=== PATIENT | female | born 1950 | race Caucasian/White ===

== ENCOUNTER 2016-12-19 21:20 | Inpatient (IN) | payer OTHER ==
--- NOTE | ~2016-12-19 | OR ---
Unit #: [id number] #: [id number] Patient: ANOTINETTE TUCKER [id number] [address] [place], [place] [address] [id number] I MR#: [id number] NAME: ANTOINETTE TUCKER ROOM: [facility] Date of Procedure: 12/20/2016 Admission Date: 12/19/2016 Surgeon: Justyn Norris M.D. : 1950 Chief Librarian Music Department(s): Nayeli Bundy APRN Attending Physician: Altagracia Roblero M.D. Primary Care Physician: Faith Zuniga M.D. PROCEDURE OPERATIVE NOTE PREOPERATIVE DIAGNOSIS Right valgus impacted femoral neck fracture. POSTOPERATIVE DIAGNOSIS Right valgus impacted femoral neck fracture. PROCEDURE PERFORMED Percutaneous cannulated screw fixation right femoral neck fracture. SURGEON Justyn Norris M.D. JEWEL STAKER Nayeli Bundy APRN. ANESTHESIA General. ESTIMATED BLOOD LOSS 25 mL. COMPLICATIONS None apparent. IMPLANTS Alaina cannulated 6.5 x 75 mm cannulated screw x3. INDICATIONS Ms. Tucker is a 66-year-old female who sustained an injury to her right hip during a trip and fall at work. She sustained a valgus impacted femoral neck fracture which is amenable to fixation with cannulated screws. The risks, benefits and alternatives were discussed with the patient who elected to proceed. DESCRIPTION OF PROCEDURE The patient was identified in the preoperative holding area. The operative site was marked. The patient was brought into the operating room by Anesthesia personnel. General anesthetic was induced while in her hospital bed. She was then transferred to the [place] table. On the operative table she was placed with the legs in a scissored position without any traction applied to the operative extremity. The leg was prepped in a sterile fashion and draped with a shower curtain drape. Unit #: [id number] #: [id number] Patient: ANTOINETTE TUCKER C-arm imaging was brought in over the operative field. Formal timeout was performed to confirm correct patient and correct operative site. An incision was marked out using fluoroscopic imaging guidance. The incision as then deepened down to the IT band. A guidepin for cannulated screw was then drilled up the femoral neck, into the desired location in the femoral head. Two more proximal guidepins were then placed, one anteriorly and superiorly and one posterior and superior. These were measured and all measured essentially as 75 mm length. The outer cortex was drilled and the screws inserted. Final imaging was performed in two orthogonal views. These demonstrated a satisfactory placement of the hardware. The wound was then irrigated and closed with 2-0 Vicryl and kenyon. Sterile dressings were applied. DISPOSITION Stable to the recovery room. Dictated by... Justyn Norris M.D. PATRICE/fritz TD: 12/20/2016 16:04 JOB #: [id number] PROCEDURE OPERATIVE NOTE Page 1 of 1 X Justyn Norris MD X PROCEDURE OPERATIVE NOTE
--- NOTE | ~2016-12-19 | CR72 ---
[facility] A Service of [facility] RADIOLOGY TEXT RESULTS PATIENT: ANTOINETTE TUCKER LOCATION: [facility] [id number] : [birth year] UNIT #: [id number] AGE: [address]: Altagracia Roblero MD SEX: F ORDER DR: [id number] [facility] [address] [place], [place] [address] [id number] I MR#: [id number] Acc #: [id number] NAME: ANTOINETTE TUCKER : 1950 SEX: F STUDY DATE/TIME: 12/19/2016 21:43 UNIT: [facility] ROOM: [facility] STUDY DESCRIPTION: CR Chest Single View Portable Attending Physician: Carlie Yeung M.D. Ordering Physician: Ysabel Elias M.D. Primary Care Physician: Faith Zuniga M.D. MEDICAL IMAGING REPORT This report is preliminary unless electronic signature is present EXAM Portable chest, 12/19/2016 HISTORY Hip fracture status post fall today, preop clearance. Benign essential hypertension. FINDINGS The heart is normal in size. Lungs are clear. There are no pleural effusions. Scoliosis of the thoracic spine is noted. IMPRESSION No active pulmonary disease. Dictated by... Justyn Quintanilla M.D. THIS IS AN ELECTRONICALLY VERIFIED REPORT Justyn Quintanilla M.D. at 12/20/2016 2:28 PM JUVE/luz maria TD: 12/19/2016 22:53 JOB #: [id number] MEDICAL IMAGING REPORT Page 1 of 1 COPY
--- NOTE | ~2016-12-19 | DS ---
Unit #: [id number] #: [id number] Patient: ANTOINETTE TUCKER [id number] [address] [address] [id number] I MR#: [id number] NAME: ANTOINETTE TUCKER. ROOM: 464 Age: 66 Sex: F Admission Date: 12/19/2016 : 1950 Discharge Date: 12/22/2016 Attending Physician: Altagracia Roblero M.D. Primary Care Physician: Faith Zuniga M.D. DISCHARGE SUMMARY DISCHARGE DIAGNOSES 1. Right valgus impacted femoral neck fracture, status post screw fixation of the right femoral neck fracture. 2. Status post fall. 3. Coronary artery disease, status post stent and PCI, myocardial infarction in 2002. 4. Hypertension. 5. Hypothyroidism. 6. Gastroesophageal reflux disease. 7. Osteoporosis. 8. Neurofibromatosis. CONSULTANTS Dr. Justyn Norris. PROCEDURES PERFORMED The patient had percutaneous cannulated screw fixation right femoral neck fracture. DIAGNOSTIC DATA LABORATORY: Urine cultures negative. Sodium 138, potassium 4.3, creatinine 0.8, white blood cell count 8.8, hemoglobin 12.3, platelets 169. ALLERGIES No known drug allergies. DISCHARGE MEDICATIONS 1. Xarelto 10 mg p.o. daily for 14 days. 2. Zoloft 100 mg p.o. daily. 3. Tenormin 50 mg p.o. daily. 4. Crestor 10 mg daily. 5. Lisinopril 2.5 mg p.o. daily. 6. Boniva 150 mg p.o. Monthly. 7. Aspirin 81 mg daily. 8. Lortab 5 mg 1-2 tablets q.4 h. p.r.n. pain. 9. Synthroid 125 mcg p.o. daily. HOSPITAL COURSE The patient is a 66-year-old admitted because of fall and right hip fracture. Fall with right femoral neck fracture: The patient was seen by orthopedics. The patient had fixation with a screw. Currently the patient is ambulating fine. Continue with home health at home. The patient will Unit #: [id number] #: [id number] Patient: ANTOINETTE TUCKER continue with Xarelto for 14 days according to orthopedic recommendations. Coronary artery disease: Continue with aspirin. Hypertension: Well controlled. The patient had a urinary tract infection present on admission, but cultures negative. The patient received Rocephin. I am going to discontinue the Rocephin. She does not need antibiotics to take home. DISPOSITION Discharge home with home health. FOLLOWUP 1. Follow up with family physician in one week time. 2. Follow up with Dr. Norris in two weeks time. Dictated by... Florian Schmid/nicolás TD: 12/24/2016 10:27 JOB #: [id number] CC: Faith Zuniga M.D. DISCHARGE SUMMARY Page 1 of 1 X Altagracia Roblero MD X DISCHARGE SUMMARY
--- NOTE | ~2016-12-19 | HP ---
Unit #: [id number] #: [id number] Patient: ANTOINETTE TUCKER [id number] [address] [place], [place] [address] [id number] I MR#: [id number] NAME: ANTOINETTE TUCKER ROOM: 457 Age: 66 Sex: F Admission Date: 12/19/2016 : 1950 Attending Physician: Carlie Yeung M.D. Primary Care Physician: Faith Zuniga M.D. HISTORY AND PHYSICAL CHIEF COMPLAINT Fall with right femoral neck fracture. HISTORY This pleasant 66-year-old female with hypertension, hypothyroidism, CAD, was transferred from [facility] emergency department for a hip fracture. The patient works at [employer]. During the course of her employment today, she tripped onto a standing mat onto her right side. She was unable to bear weight afterwards with pain in the right hip and right knee. She was taken to [facility] ER by EMS where x-rays demonstrate a transverse subcapital fracture through the right femoral neck with slight fracture impaction and minimal angulation. Alcohol was also made to orthopedic surgery who will be seeing the patient in the morning, they ask that medicine admit. The patient has a history of CAD and had a previous AR 2002 for which she underwent PCI and stent placement. She denies any current cardiac issues, and is quite active without chest pain. He is able to ambulate a couple of flights of stairs without difficulty. PAST MEDICAL HISTORY 1. CAD with previous AR, PCI and stent 2002. 2. Hypothyroidism. 3. Hyperlipidemia. 4. GERD. 5. Osteoporosis. 6. Essential hypertension. 7. Neurofibromatosis requiring removal of some superficial schwannomas. 8. Left carpal tunnel release. 9. Right trigger finger surgery. 10. Bunionectomy. 11. Bladder repair. 12. Total abdominal hysterectomy. ALLERGIES No known drug allergies. HOME MEDICATIONS Synthroid 0.125 mg daily; Crestor 10 mg daily; Mobic 7.5 mg daily; aspirin 81 mg daily; atenolol 50 mg daily; Boniva 150 mg each month; lisinopril 2.5 mg daily; Zoloft 100 mg daily. FAMILY HISTORY Unit #: [id number] #: [id number] Patient: ANTOINETTE TUCKER Negative for CAD. SOCIAL HISTORY The patient, lives alone, works at [employer]. Is a lifelong nonsmoker. Drink alcohol socially. REVIEW OF SYSTEMS Notable for pain in the right hip after fall. Pain in the right knee, CAD, hypothyroidism, hyperlipidemia, GERD, osteoporosis, hypertension, neurofibromatosis, above mentioned surgeries. All other systems were reviewed and are otherwise negative. PHYSICAL EXAMINATION GENERAL: Pleasant, thin, 66-year-old female currently in no acute distress. VITAL SIGNS: Temperature 98.1, respirations 18, pulse 78, blood pressure 121/67. HEENT: Eyes - PERRLA. Extraocular movements intact. Pharynx is benign. NECK: Supple without adenopathy, thyromegaly, or carotid bruits. CHEST: Clear on patient's supine exam. CARDIAC: Normal S1 and S2 without S3, S4 or murmur. ABDOMEN: Bowel sounds are present. No hepatosplenomegaly, tenderness, or masses. EXTREMITIES: Without edema. Pedal pulses are present. NEUROLOGIC: Patient is awake, alert, and oriented. Cranial nerves are intact. She is able to move all of her extremities. SKIN: Reveals raised skin lesions consistent with neurofibromatosis. DIAGNOSTIC STUDIES LABORATORY STUDIES: Pending. IMAGING STUDIES: Chest x-ray - no acute disease. Plain x-ray of the right knee negative. X-ray of the right hip transverse subcapital fracture of the right femoral neck with slight fracture impaction and minimal angulation. CARDIOLOGY STUDIES: EKG - normal sinus rhythm rate 84, with a left atrial enlargement. Qs noted in 3 and AVF. T wave inversion of V1 and V2. ASSESSMENT 1. Fall with right femoral neck fracture while working at [employer]. This was a mechanical fall. 2. CAD, status post PCI and stent for AR 2002. No cardiac issues sine 2002. Patient is active without chest pain. 3. Essential hypertension. 4. Hypothyroidism. 5. GERD. 6. Osteoporosis. 7. Neurofibromatosis. PLANS 1. Obtain labs, urinalysis. 2. Orthopedic surgeon has been consulted. 3. IV fluids and supportive treatment. 4. Continue beta-blockers even if NPO. 5. Obtain TSH on current syndrome dose. Unit #: [id number] #: [id number] Patient: ANTOINETTE TUCKER 6. Will clear based on above. Dictated by Ysabel Elias M.D. FRANCISCA/mathieu TD: 12/20/2016 05:43 JOB #: [id number] HISTORY AND PHYSICAL Page 1 of 1 X Ysabel Elias MD HISTORY AND PHYSICAL
--- NOTE | ~2016-12-19 | EKG ---
PATIENT: ANTOINETTE TUCKER UNIT #: [id number] Ventricular Rate: 84 BPM Atrial Rate: 84 BPM P-R Interval: 166 ms QRS Duration: 78 ms Q-T Interval: 398 ms QTC Calculation(Bezet): 470 ms Calculated R [place]: -22 degrees Calculated T [place]: 140 degrees Diagnosis Line: Normal sinus rhythm Diagnosis Line: Low voltage QRS Diagnosis Line: Inferior infarct , age undetermined Diagnosis Line: Abnormal ECG Diagnosis Line: No previous ECGs available Diagnosis Line: Confirmed by LEXI MEYERS MD ([id number]) on Diagnosis Line: 12/20/2016 4:36:48 PM INTERPRETING MD: MIRA FRANCO
--- NOTE | ~2016-12-19 | CR151 ---
[facility] A Service of [facility] RADIOLOGY TEXT RESULTS PATIENT: ANTOINETTE TUCKER LOCATION: [place] [address] : [birth year] UNIT #: [id number] AGE: [address]: Altagracia Roblero MD SEX: F ORDER DR: [id number] [place] [id number] [facility] [place], [place] [address] [id number] I MR#: [id number] Acc #: [id number] NAME: ANTOINETTE TUCKER. : 1950 SEX: F STUDY DATE/TIME: 12/20/2016 12:34 UNIT: [facility] ROOM: [facility] STUDY DESCRIPTION: CR Hip Min 2 Views Rt Attending Physician: Altagracia Roblero M.D. Ordering Physician: Justyn Norris M.D. Primary Care Physician: Faith Zuniga M.D. MEDICAL IMAGING REPORT This report is preliminary unless electronic signature is present EXAM Right hip, 2 views COMPARISON 2 views of the right hip dated December 19, 2016. INDICATION 66-year-old female. Intraoperative fluoroscopic evaluation for open reduction internal fixation of right hip fracture. FINDINGS Total 4 images were obtained. Total fluoro time was approximately 1.1 minutes. Intraoperative images demonstrate placement of 2 lag screws through the intertrochanteric region of the right femur by lateral approach with the lag screws terminating in the femoral head. There is actually a third lag screw passing from the intertrochanteric region into the right femoral head. Bones are grossly anatomically aligned. No evidence of dislocation. No evidence of hardware complication. IMPRESSION Post open reduction internal fixation of a right femoral neck fracture as described. Formal postoperative radiographic evaluation recommended. Dictated by... Tee Bhatia M.D. THIS IS AN ELECTRONICALLY VERIFIED REPORT Tee Bhatia M.D. at 12/25/2016 7:27 PM KECIA/rnr TD: 12/20/2016 18:32 JOB #: [id number] [facility] A Service of [facility] RADIOLOGY TEXT RESULTS PATIENT: ANTOINETTE TUCKER LOCATION: [facility] [id number] : [birth year] UNIT #: [id number] AGE: [address]: Altagracia Roblero MD SEX: F ORDER DR: MEDICAL IMAGING REPORT Page 1 of 1 COPY
--- NOTE | ~2016-12-19 | CO ---
Unit #: [id number] #: [id number] Patient: ANTOINETTE TUCKER [id number] [address] [address] [id number] I MR#: [id number] NAME: ANTOINETTE TUCKER. ROOM: [facility] Age: 66 Sex: F Admission Date: 12/19/2016 : 1950 Attending Physician: Altagracia Roblero M.D. Primary Care Physician: Faith Zuniga M.D. CONSULTATION REPORT HISTORY OF PRESENT ILLNESS Ms. Tucker is a 66-year-old female who sustained an injury to her right hip during a fall at work. She works at [employer]. She tripped over a mat on the floor, falling and landing on her right side. She was subsequently unable to stand or bear weight on the affected extremity. She was brought by EMS to an outlying emergency department, where plain film radiographs demonstrated a subcapital femoral neck fracture. She was transferred to [facility] for further definitive management. She is currently examined supine in her hospital bed. She appears comfortable and states her pain is relieved with narcotic pain medication. The pain is worse with range of motion of the hip. PAST MEDICAL HISTORY 1. Coronary artery disease with a history of myocardial infarction. 2. Hypothyroidism. 3. Hyperlipidemia. 4. Gastroesophageal reflux disease. 5. Osteoporosis. 6. Hypertension. 7. Neurofibromatosis. PAST SURGICAL HISTORY 1. Coronary artery stenting in 2002. 2. Carpal tunnel release. 3. Trigger finger release. 4. Bunionectomy. 5. Unspecified bladder surgery. 6. Hysterectomy. SOCIAL HISTORY The patient has a roommate at home. She works at [employer]. No tobacco use. She drinks alcohol socially. No illicit drug use. FAMILY HISTORY Noncontributory to the current illness. ALLERGIES No known drug allergies. HOME MEDICATIONS 1. Synthroid. 2. Crestor. 3. Mobic. Unit #: [id number] #: [id number] Patient: ANTOINETTE TUCKER 4. Aspirin. 5. Atenolol. 6. Boniva. 7. Lisinopril. 8. Zoloft. REVIEW OF SYSTEMS Ten systems are reviewed and negative other than as per history of present illness. PHYSICAL EXAMINATION GENERAL: Healthy-appearing 66-year-old female examined, in no acute distress. PSYCHIATRIC: Awake, alert and oriented to person, place, time and situation. Normal range of mood and affect. LUNGS: No increased work of breathing. Symmetric chest rise. HEART: Regular rate and rhythm. ABDOMEN: Nondistended. NEUROLOGIC: Intact motor and sensory function right foot, L4 through S1. VASCULAR: Palpable 2+ dorsalis pedis pulse. SKIN: There is no overlying bruising, evidence of open injury. MUSCULOSKELETAL: The right lower extremity demonstrates appropriate leg lengths. There appears to be minimal shortening of the affected extremity. Range of motion of the leg is deferred, given the known fracture. DIAGNOSTIC STUDIES IMAGING: Plain film radiographs reviewed of the pelvis demonstrate a garden 1 valgus impacted femoral neck fracture with no displacement on the lateral radiograph. LABORATORY: BMP is unremarkable. Hemoglobin is 12.3 with a white blood cell count of 8.8. ASSESSMENT The patient is a 66-year-old female with valgus impacted femoral neck fracture. PLAN Her fracture pathology is amenable to fixation with cannulated screws. We discussed surgical treatment today. The risks, benefits and alternatives have been discussed. At this point she elects to proceed. We will plan for surgery this afternoon. Dictated by... Justyn Norris M.D. KLH/nicolás TD: 12/20/2016 08:58 JOB #: [id number] Unit #: [id number] #: [id number] Patient: ANTOINETTE TUCKER CONSULTATION REPORT Page 1 of 1 X Justyn Norris MD X CONSULTATION REPORT
--- NOTE | ~2016-12-19 | EKG ---
PATIENT: ANTOINETTE TUCKER UNIT #: [id number] Ventricular Rate: 81 BPM Atrial Rate: 81 BPM P-R Interval: 182 ms QRS Duration: 76 ms Q-T Interval: 396 ms QTC Calculation(Bezet): 460 ms P [place]: 58 degrees Calculated R [place]: 12 degrees Calculated T [place]: 36 degrees Diagnosis Line: Normal sinus rhythm Diagnosis Line: Possible Inferior infarct , age undetermined Diagnosis Line: Abnormal ECG Diagnosis Line: No previous ECGs available Diagnosis Line: Confirmed by LEXI MEYERS MD ([id number]) on Diagnosis Line: 12/20/2016 4:37:44 PM INTERPRETING MD: MIRA FRANCO
[~2016-12-19 21:20] MED LIST: ASPIRIN81 MG PO; ATENOLOL50 MG PO; BONIVA150 MG PO; CRESTOR10 MG PO; LISINOPRIL2.5 MG PO; LORTAB 7.5-5001 TAB PO; MELOXICAM7.5 MG PO; OMEPRAZOLE20 M2 PO; PHENERGAN25 M1 DOB; SYNTHROID175 MCG PO; ZOCOR PO; ZOLOFT100 MG PO
[2016-12-19 23:50] LABS: URINE APPEARANCE CLEAR; URINE BILIRUBIN NEG (NEG); URINE BLOOD 1+ (NEG); URINE COLOR YELLOW; URINE GLUCOSE NEG (NEG); URINE KETONE 1+ (NEG); URINE LEUKOCYTE ESTERASE 3+ (NEG); URINE NITRATE NEG (NEG); URINE PH 5.5 (5-8); URINE PROTEIN NEG (NEG); URINE SPECIFIC GRAVITY 1.021 (1.003-1.035); URINE UROBILINOGEN 0.2 MG/DL (NEG)
[2016-12-19 23:52] LABS: CULTURE INDICATED? YES; URBCS1 AUWI 0-2 /[HPF] (0-2); URINE BACTERIA AUWI NEG (NEGATIVE); URINE SQUAMOUS EPITHELIAL CELL FEW /[HPF]
[2016-12-20 00:07] LABS: BASOPHIL% 0.5 % (0-2.5); DIFF IND NO; EOSINOPHIL# 0.1 X10e3 (0-0.7); EOSINOPHIL% 1.4 % (0.0-7.0); HEMATOCRIT 36.9 % (35.0-45.0); HEMOGLOBIN 12.4 gm/dL (12.0-16.0); LYMPHOCYTE% 9.5 % (17.0-45.0); MEAN CELL VOLUME 88.2 FL (83-96); MEAN CORPUSCULAR HEMOGLOBIN 29.7 PG (28-34); MEAN CORPUSCULAR HGB CONC 33.7 g/dL (30-36); MONOCYTE# 0.9 X10e3 (0-1.0); MONOCYTE% 9.1 % (3.0-12.0); NEUTROPHIL% 79.5 % (40-75); PLATELET COUNT 171 X10e3 (140-420); RED BLOOD COUNT 4.19 X10e (3.90-5.30); RED CELL DISTRIBUTION WIDTH 13.2 % (11.0-15.5)
[2016-12-20 00:23] LABS: ALBUMIN SERUM 4.1 g/dL (3.5-5.0); BILIRUBIN,TOTAL 0.7 mg/dL (0.2-2.0); CREATININE SERUM 0.7 mg/dL (0.6-1.4); GLOM FILT RATE Estimated 91.6 mL/min (>60); POTASSIUM 3.5 mmol/L (3.5-5.1); PROTEIN TOTAL SERUM 6.7 g/dL (6.0-8.3)
[2016-12-20 01:25] LABS: BASOPHIL# 0.1 X10e3 (0-0.3); BASOPHIL% 0.6 % (0-2.5); EOSINOPHIL# 0.2 X10e3 (0-0.7); EOSINOPHIL% 1.8 % (0.0-7.0); HEMOGLOBIN 12.3 gm/dL (12.0-16.0); LYMPHOCYTE# 0.9 X10e3 (1.0-3.5); LYMPHOCYTE% 10.2 % (17.0-45.0); MEAN CORPUSCULAR HEMOGLOBIN 29.3 PG (28-34); MEAN CORPUSCULAR HGB CONC 33.3 g/dL (30-36); MEAN PLATELET VOLUME 7.9 FL (6.5-11.5); MONOCYTE# 0.7 X10e3 (0-1.0); MONOCYTE% 7.9 % (3.0-12.0); NEUTROPHIL% 79.5 % (40-75); PLATELET COUNT 169 X10e3 (140-420); RED CELL DISTRIBUTION WIDTH 13.6 % (11.0-15.5); WHITE BLOOD COUNT 8.8 X10e3 (4.0-10.5)
[2016-12-20 01:30] LABS: DIFF IND NO
[2016-12-20 01:48] LABS: CALCIUM SERUM 9.1 mg/dL (8.4-10.2); CREATININE SERUM 0.8 mg/dL (0.6-1.4); POTASSIUM 4.3 mmol/L (3.5-5.1)
[2016-12-22] MEDS ORDERED: XARELTO10 MG PO (12:13)
[2016-12-22] MEDS ORDERED: HYDROCODON-ACE1 EAC7 PO (12:19)
== END 2016-12-22 16:35 | disposition home or self-care (01) | DRG 481 ==
LOC: C4B 21:20 → C4C 12-21 18:07
PROVIDERS: Internal Medicine; Orthopaedic Surgery
PROC: 0QS604Z Reposition Right Upper Femur with Internal Fixation Device, Open Approach (ICD-10-PCS; principal; 2016-12-20 15:00)
DX: S72.001A Fracture of unspecified part of neck of right femur, initial encounter for closed fracture (principal); N39.0 Urinary tract infection, site not specified; I10 Essential (primary) hypertension; K21.9 Gastro-esophageal reflux disease without esophagitis; E03.9 Hypothyroidism, unspecified; M81.0 Age-related osteoporosis without current pathological fracture; I25.10 Atherosclerotic heart disease of native coronary artery without angina pectoris; Z95.5 Presence of coronary angioplasty implant and graft; I25.2 Old myocardial infarction; Q85.00 Neurofibromatosis, unspecified; Z79.82 Long term (current) use of aspirin; Z90.710 Acquired absence of both cervix and uterus; W01.0XXA Fall on same level from slipping, tripping and stumbling without subsequent striking against object, initial encounter; Y92.63 Factory as the place of occurrence of the external cause
CPT/HCPCS: 71010; 73502; 76000; 80048; 80053; 81003; 84443; 85025; 86850; 86900; 86901; 87086; 93005; 97110; 97116; 97161; 97530; C1713; J0696; J1100; J1650; J1885; J2270; J2405; J3010